=== PATIENT | male | born 1980 | race Caucasian/White ===

== ENCOUNTER 2017-05-17 18:48 | Emergency (ER) | payer BC ==
[~2017-05-17] VITALS: Ht 172.7 cm; Wt 116.6 kg
[2017-05-17 23:25] VITALS: BP 120/76
== END 2017-05-17 23:25 | disposition home or self-care (01) ==
LOC: ED 18:48
DX: S60.453A Superficial foreign body of left middle finger, initial encounter (principal); R03.0 Elevated blood-pressure reading, without diagnosis of hypertension; X58.XXXA Exposure to other specified factors, initial encounter; Y93.89 Activity, other specified; Y99.8 Other external cause status; Y92.89 Other specified places as the place of occurrence of the external cause
CPT/HCPCS: 90715; J2001